=== PATIENT | male | born 1990 | race Caucasian/White ===

== ENCOUNTER 2016-08-01 11:01 | Emergency (ER) | payer OTHER ==
[~2016-08-01] VITALS: Ht 182.9 cm; Wt 74.8 kg
[2016-08-01 11:12] VITALS: BP 126/81
[2016-08-01] MEDS ORDERED: clonazePAM 1 MG TABLET ONE (11:29)
[2016-08-01] MEDS ORDERED: clonazePAM 1 MG TABLET PO ONE (11:30)
== END 2016-08-01 11:56 | disposition home or self-care (01) ==
LOC: ER 11:03
DX: F13.20 Sedative, hypnotic or anxiolytic dependence, uncomplicated (principal); Z76.0 Encounter for issue of repeat prescription
CPT/HCPCS: 99282; A4606; Z7610